=== PATIENT | male | born 1945 | race Caucasian/White ===

== ENCOUNTER → 2018-07-21 | Outpatient (CLI) | payer MEDICARE ==
[~2018-07-21] MED LIST: ALBU18HF INH; CHOL2000 PO; FLUT1DIS3 INH; GABA-827 PO; GUAI600T80 PO; LEVO500T47 PO; METF500T5 PO; OSEL75CA PO; PRED10TA PO; SERT100T5 PO; SIMV40TA3 PO; WARF3TAB PO
== END | disposition home or self-care (01) ==
LOC: CFH 12:17
PROVIDERS: ATTEND Internal Medicine Cardiovascular Disease
DX: I34.0 Nonrheumatic mitral (valve) insufficiency (principal); I07.1 Rheumatic tricuspid insufficiency; E78.5 Hyperlipidemia, unspecified; Z87.891 Personal history of nicotine dependence
CPT/HCPCS: 93306